=== PATIENT | female | born 1980 | race Caucasian/White ===

== ENCOUNTER 2018-11-03 15:15 | Emergency (ER) | payer OTHER ==
[~2018-11-03] VITALS: Ht 157.5 cm; Wt 72.6 kg
[2018-11-03 15:16] VITALS: BP 123/75
--- NOTE | 2018-11-03 15:16 | NUR ---
PT ADARSH BLS TO ER BED 06
--- NOTE | 2018-11-03 15:20 | NUR ---
ADARSH. PT WAS AT [employer] WHEN SHE EXPERIENCED AN ANXIETY ATTACK AND THE STORE CALLED 911. [facility] STATES PATIENT USED METH YESTERDAY AND WANTS TO DETOX. PER PATIENT, SHE DRANK APPROX 15 SHOTS OF UNKNOWN ALCOHOL TODAY AND STATES SHE WAS IN THE SUN FOR 2 HOURS. BS 114 IN FIELD. PT TACHY AT 111. AA0X4. DENIES SOB, CHEST PAIN, OR BLURRY VISION. BED IS DOWN, LOCKED, BED RAIL X 1, ERMD TO SEE PT. PMH- DRUG AND ALCOHOL ABUSE
--- NOTE | 2018-11-03 15:30 | NUR ---
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 AROUSABLE TO NAME.
--- NOTE | 2018-11-03 15:38 | NUR ---
DR SHI AT BEDSIDE
[2018-11-03] MEDS ORDERED: MULTIVITAMIN-12 10 ML, THIAMINE 100 MG, MAGNESIUM SULFATE 50% 2,000 MG, FOLIC ACID 5 MG... IV ONE ×5 (15:59)
[2018-11-03] MEDS ORDERED: NACL 0.9% 1,000 ML IV ONE (15:59)
[2018-11-03] MEDS ORDERED: MULTIVITAMIN-12 10 ML, THIAMINE 100 MG, MAGNESIUM SULFATE 50% 2,000 MG, FOLIC ACID 5 MG... IV SCH ×5 (16:03)
--- NOTE | 2018-11-03 16:31 | NUR ---
PT ASSISTED ONTO BEDPAN, UNABLE TO GIVE URINE AT THIS TIME
--- NOTE | 2018-11-03 16:46 | NUR ---
LAB AT BEDSIDE
--- NOTE | 2018-11-03 16:47 | NUR ---
VSS AT THIS TIME. PT SLEEPING IN BED. AROUSABLE TO NAME.
--- NOTE | 2018-11-03 17:19 | NUR ---
# 8 FR Urinary catheter inserted utilizing sterile technique. Immediate return of YELLOW urine noted. Urine sample collected and sent to lab. Pt tolerated procedure WELL.
[2018-11-03 17:30] LABS: BASOPHILS % (AUTO) 0.4 % (0.0-2.0); EOSINOPHILS # (AUTO) 0.2 K/uL (0-0.4); EOSINOPHILS % (AUTO) 2.4 % (0.0-4.0); HEMATOCRIT 43.4 % (36-48); HEMOGLOBIN 14.6 g/dL (12.0-16.0); LYMPHOCYTES # (AUTO) 2.1 K/uL (2.5-16.5); LYMPHOCYTES % (AUTO) 27.9 % (20.5-51.1); MEAN CORPUSCULAR HEMOGLOBIN 33 pg (27-31); MEAN CORPUSCULAR HGB CONC 34 g/dL (33-37); MEAN CORPUSCULAR VOLUME 99.1 fL (80-94); MONOCYTES # (AUTO) 0.5 K/uL (0.8-1.0); MONOCYTES % (AUTO) 6.7 % (1.7-9.3); NEUTROPHILS # (AUTO) 4.7 K/uL (1.8-7.7); NEUTROPHILS % (AUTO) 62.6 % (42.2-75.2); PLATELET COUNT (AUTO) 278 K/uL (140-450); RED BLOOD CELL COUNT(AUTO) 4.37 MIL/uL (4.20-5.40); RED CELL DISTRIBUTION WIDTH 13.5 % (11.6-13.7); WHITE BLOOD COUNT (AUTO) 7.5 K/uL (4.8-10.8)
[2018-11-03 17:48] LABS: ALBUMIN 3.4 g/dL (3.4-5.0); ANION GAP 13.9 (8-16); CARBON DIOXIDE 25.9 mmol/L (21-32); CREATININE 0.7 mg/dL (0.6-1.3); TOTAL BILIRUBIN 0.2 mg/dL (0.0-1.0)
[2018-11-03 17:59] LABS: POTASSIUM 2.8 mmol/L (3.5-5.1)
--- NOTE | 2018-11-03 17:59 | NUR ---
POTASSIUM 2.8. DR SHI NOTIFIED
[2018-11-03 18:04] LABS: APPEARANCE,URINE CLEAR (CLEAR); BILIRUBIN,URINE NEGATIVE (NEGATIVE); BLOOD, URINE NEGATIVE (NEGATIVE); COLOR,URINE YELLOW (YELLOW); LEUKOCYTE ESTERASE ,URINE TRACE (NEGATIVE); NITRITE, URINE NEGATIVE (NEGATIVE); UGLUCOSE NEGATIVE (NEGATIVE)
[2018-11-03 18:13] LABS: BARBITURATE, URINE NEG. ng/ml (NEG <=200); BENZODIAZEPINE, URINE NEG. ng/mL (NEG <=200); CANNABINOID, URINE NEG. ng/mL (NEG <=50); COCAINE, URINE NEG. ng/mL (NEG <=300); OPIATE, URINE NEG. ng/mL (NEG <=2000); PHENCYCLIDINE SCREEN,URINE NEG. ng/mL (NEG <=25)
[2018-11-03 18:26] LABS: RBC,URINE 0-5 /HPF (0-5); WBC,URINE 16-25 (MOD) /HPF (0-5)
[2018-11-03 18:27] LABS: URIC ACID CRYSTALS,URINE 0-10 /HPF (None Seen)
[2018-11-03] MEDS ORDERED: POTASSIUM CHLORIDE 10 MEQ TABER PO ONE (18:30)
--- NOTE | 2018-11-03 18:33 | NUR ---
REMINDED DR SHI REGARDING POTASSIUM LEVEL
--- NOTE | 2018-11-03 18:42 | NUR ---
PT WOKEN UP TO TAKE HER POTASSIUM PILLS. PT AROUSABLE BY NAME. PT AA0X4. PT RETURNS TO SLEEP AFTER CONVERSATION.
--- NOTE | 2018-11-03 19:07 | NUR ---
PT READY TO BE DISCHARGED. PT PHONE IS . WILL CALL FAMILY FOR PICKUP.
--- NOTE | 2018-11-03 19:11 | NUR ---
PT GAVE FAMILY PHONE NUMBER. CALLED [phone]. NO ANSWER. VOICEMAIL BOX FULL AND CAN'T LEAVE A MESSAGE.
--- NOTE | 2018-11-03 19:11 | NUR ---
ASSUMED CARE OF PT FROM ARNULFO OLIVAS.
--- NOTE | 2018-11-03 19:24 | NUR ---
PT SUCCESSFULLY PASSED ROAD TEST OF APPROXIMATELY 40 FEET
--- NOTE | 2018-11-03 19:25 | NUR ---
PT ALERT TO NAME, BIRTHDAY, TIME, AND EVENT. ABLE TO ANSWER ALL QUESTIONS APPROPRIATLEY. PT VERBALIZED DESIRE FOR DISCHARGE.
--- NOTE | 2018-11-03 19:25 | NUR ---
PT ABLE TO AMBULATE WITHOUT ASSIST TO RESTROOM.
--- NOTE | 2018-11-03 19:28 | NUR ---
IV removed, catheter intact and site benign. Applied folded 4x4 gauze and tape to stop bleeding.
[2018-11-03 19:30] VITALS: BP 126/85
--- NOTE | 2018-11-03 19:30 | NUR ---
OFFERED PT BUSPASS UPON D/C. PT DECLINED.
== END 2018-11-03 19:30 | disposition home or self-care (01) ==
LOC: MED 15:15
DX: F10.129 Alcohol abuse with intoxication, unspecified (principal); E87.6 Hypokalemia; F15.10 Other stimulant abuse, uncomplicated
CPT/HCPCS: 36415; 80053; 80305; 81001; 81025; 85025; 87086; 96365; 96366; 99283; A9153; G0482; J3411; J3475; J3490; J7030